=== PATIENT | male | born 1990 | race Caucasian/White ===

== ENCOUNTER 2019-04-14 17:34 | Emergency (ER) | payer SELFPAY ==
[~2019-04-14] VITALS: Ht 180.3 cm; Wt 81.8 kg
[2019-04-14 17:41] VITALS: BP 129/67; PULSE 92; TEMP 97.1
== END 2019-04-14 19:30 | disposition left against medical advice (07) ==
LOC: COL.ER 17:34
DX: R69 Illness, unspecified (principal)